=== PATIENT | female | born 1975 | race Caucasian/White ===

== ENCOUNTER 2016-10-17 11:34 | Emergency (ER) | payer OTHER ==
[~2016-10-17] VITALS: Ht 162.6 cm; Wt 71.5 kg
[2016-10-17 11:37] VITALS: Ht 162.6 cm; Wt 71.5 kg
[2016-10-17] MEDS ORDERED: HYDROCODONE/APAP (5/325) TAB PO ONE (12:00)
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
[2016-10-17] MEDS ORDERED: IBUP-1542 PO (13:12)
[2016-10-17] MEDS ORDERED: HYDR-906 PO (13:12)
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
== END 2016-10-17 13:22 | disposition home or self-care (01) ==
LOC: FTE 11:34
DX: S49.91XA Unspecified injury of right shoulder and upper arm, initial encounter (principal); S29.9XXA Unspecified injury of thorax, initial encounter; V49.50XA Passenger injured in collision with unspecified motor vehicles in traffic accident, initial encounter
CPT/HCPCS: 71100; 72125